=== PATIENT | female | born 1940 | race Caucasian/White ===

== ENCOUNTER → 2022-09-05 | Outpatient (CLI) | payer MEDICARE ==
[~2022-09-05] MED LIST: LIDOCAINE 1% INJ 10 ML VIAL INJ ONE
--- NOTE | 2022-09-05 13:30 | Diagnostic Imaging Report ---
INDICATION: Left lobe thyroid mass. PROCEDURE: The patient presents for ultrasound-guided fine-needle aspiration and Rotex biopsy. The patient was brought to the procedure room and placed on the table in the supine position. Ultrasound imaging of the neck was performed to evaluate appropriate entry site. The left neck was then prepped and draped in the usual sterile fashion. Small amount of 1% lidocaine was utilized for local anesthesia. A total of 4 passes were made into the dominant solid mass left lobe of the thyroid utilizing 25-gauge needles and fine-needle aspiration technique. A single pass was made with a Rotex needle and a Rotex biopsy was formed. Hemostasis was obtained. Patient tolerated the procedure well left the department in stable condition. IMPRESSION: Successful ultrasound-guided fine needle aspiration left lobe thyroid mass with Rotex biopsy. Pathology results are currently pending. Dictated by: Dictated on workstation # [id number]
== END ==
LOC: RAD 09-03 11:30
PROVIDERS: ATTEND Nurse Practitioner Family
DX: E04.1 Nontoxic single thyroid nodule (principal)
CPT/HCPCS: 10005

== ENCOUNTER → 2023-04-28 | Outpatient (CLI) | payer MEDICARE ==
--- NOTE | 2023-04-28 17:48 | Diagnostic Imaging Report ---
INDICATION: Right knee pain. Time of exam: 11:25 AM Multiple views of the right knee were obtained. There is fairly significant medial compartmental degenerative change with significant joint space narrowing. Lateral compartment is maintained. There is also moderate patellofemoral degenerative change. No fracture or dislocation is seen. There is no joint effusion. There is generalized demineralization. IMPRESSION: Degenerative changes. No other significant abnormality is detected. Dictated by: Dictated on workstation # [id number]
== END ==
LOC: ORTHO 11:17
PROVIDERS: ATTEND Orthopaedic Surgery
DX: M17.11 Unilateral primary osteoarthritis, right knee (principal)
CPT/HCPCS: 73564; G0463; 99203

== ENCOUNTER → 2023-05-14 | Outpatient (CLI) | payer MEDICARE ==
[~2023-05-14] VITALS: Ht 167.6 cm; Wt 87.2 kg
[~2023-05-14] MED LIST changes: +ACET-2650 PO; +ASPI-999 PO; +ATOR40TA70 PO; +CALC-408 PO; +CART1TAB5 PO; +CLOP-31 PO; +CYAN250014 PO; +DICL20GE TP; +LEVO50CA4 PO; -LIDOCAINE 1% INJ 10 ML VIAL INJ ONE; +LISI20TA26 PO; +NAPR-915 PO
[2023-05-14 10:33] LABS: BILIRUBIN,URINE NEGATIVE (NEGATIVE); CLARITY,URINE CLEAR; COLOR,URINE YELLOW; GLUCOSE, URINE (UA) NEGATIVE (NEGATIVE); KETONES,URINE NEGATIVE (NEGATIVE); LEUKOCYTE ESTERASE ,URINE NEGATIVE (NEGATIVE); NITRITE,URINE NEGATIVE (NEGATIVE); PROTEIN,URINE NEGATIVE (NEGATIVE)
[2023-05-14 10:50] LABS: BACTERIA,URINE TRACE /HPF; RBC,URINE RARE /HPF; SQUAMOUS EPITHELIAL CELL,UR RARE /HPF
[2023-05-14 10:52] VITALS: BP 148/74
[2023-05-14 11:18] LABS: BASOPHILS # (AUTO) 0.1 10^3/uL (0.0-0.1); BASOPHILS % (AUTO) 1 % (0-10); EOSINOPHILS # (AUTO) 0.2 10^3/uL (0.0-0.3); EOSINOPHILS % (AUTO) 3 % (0-10); HEMATOCRIT 35 % (35-52); HEMOGLOBIN 10.9 g/dL (11.5-16.0); LYMPHOCYTES # (AUTO) 1.4 10^3/uL (1.0-4.0); LYMPHOCYTES % (AUTO) 18 % (12-44); MEAN CORPUSCULAR HEMOGLOBIN 30 pg (25-34); MEAN CORPUSCULAR HGB CONC 32 g/dL (32-36); MEAN CORPUSCULAR VOLUME 93 fL (80-99); MEAN PLATELET VOLUME 9.5 fL (9.0-12.2); MONOCYTES # (AUTO) 0.8 10^3/uL (0.0-1.0); MONOCYTES % (AUTO) 11 % (0-12); NEUTROPHILS # (AUTO) 5.1 10^3/uL (1.8-7.8); NEUTROPHILS % (AUTO) 68 % (42-75); PLATELET COUNT 381 10^3/uL (130-400); WHITE BLOOD COUNT 7.5 10^3/uL (4.3-11.0)
[2023-05-14 11:27] LABS: POTASSIUM 4.8 MMOL/L (3.6-5.0)
[2023-05-14 11:29] LABS: CALCIUM 9.9 MG/DL (8.5-10.1)
[2023-05-14 11:33] LABS: CREATININE SERUM 1.64 MG/DL (0.60-1.30)
--- NOTE | 2023-05-14 15:22 | Diagnostic Imaging Report ---
CHEST PA/LAT (2 VIEW) INDICATION: PRE OP SURGERY. COMPARISON: None. FINDINGS: Lungs: Normal lung volume. No focal consolidation. Stable pulmonary vasculature. Pleura: No pleural effusion or pneumothorax. Heart and Mediastinum: Cardiomediastinal silhouette and great vessels of the thorax are stable. Osseous Structures and Soft Tissues: No acute osseous abnormality. Normal soft tissues. IMPRESSION: No acute cardiopulmonary process. Dictated by: Dictated on workstation # [id number]
== END ==
LOC: PREOP 08:06
PROVIDERS: ATTEND Orthopaedic Surgery
DX: Z01.818 Encounter for other preprocedural examination (principal); M17.11 Unilateral primary osteoarthritis, right knee
CPT/HCPCS: 36415; 71046; 80048; 81000; 85025; 87081; 93005

== ENCOUNTER 2023-05-25 07:35 | Day surgery (SDC) | payer MEDICARE ==
[2023-05-25] VITALS (14 sets, daily range): BP systolic 96–175; BP diastolic 63–85
[~2023-05-25] VITALS: Ht 167.6 cm; Wt 87.2 kg
[2023-05-25] MEDS ORDERED: ceFAZolin INJECTION 2,000 MG in NS (IVPB) 50 ML IV ONE (08:00)
[2023-05-25] MEDS ORDERED: LIDOCAINE PF 2% 5 ML (XYLOCAINE) VIAL ONE (08:19)
[2023-05-25] MEDS ORDERED: PROPOFOL INJECTION 50 ML IV ONE ×2 (08:19→11:50)
[2023-05-25] MEDS ORDERED: fentaNYL INJ 100 MCG/2 ML AMP ONE (08:19)
[2023-05-25] MEDS ORDERED: ROPIVACAINE 5MG/ML 30ML VIAL ONE (08:19)
[2023-05-25] MEDS: LACTATED RINGERS 1,000 ML IV PRN ×2 (08:23→10:40)
[2023-05-25] MEDS ORDERED: BUPIVACAINE 0.5% 30 ML (SENSORCAINE) VIAL ONE (08:24)
[2023-05-25] MEDS ORDERED: MIDAZOLAM 2 MG/2 ML (VERSED) VIAL ONE (10:10)
--- NOTE | 2023-05-25 10:21 | Progress Note-Pre Operative ---
Pre-Operative Progress Note Date of Available H&P: Apr 28, 2023 Date H&P Reviewed: May 25, 2023 Time H&P Reviewed: 10:05 History & Physical: H&P Reviewed, Patient Examed, No changes noted Pre-Operative Diagnosis: Right Knee Primary Osteoarthritis ROSALINDA GUTIERREZ MD May 25, 2023 10:21
[2023-05-25] MEDS ORDERED: TRANEXAMIC ACID 100 MG/ML 10 ML INJECTION ONE (10:30)
[2023-05-25] MEDS ORDERED: PHENYLEPHRINE 100 MCG/ML 10 ML (ANESTHESIA) SYR ONE (10:43)
[2023-05-25] MEDS ORDERED: GLYCOPYRROLATE 0.2 MG/ML (ROBINUL) 2 ML VIAL ONE (10:59)
[2023-05-25] MEDS ORDERED: proPOfol 200 MG/20 ML (DIPRIVAN) VIAL IV ONE (11:05)
--- NOTE | 2023-05-25 12:25 | Operative Report - Ortho ---
Operative Report Surgeon (s)/University Internship (s) Surgeon ROSALINDA GUTIERREZ MD University Internship n/a Pre-Operative Diagnosis Right Knee Primary Osteoarthritis Post-Operative Diagnosis same Operative Report Date of Procedure: May 25, 2023 Name of Procedure Performed: Right Total Knee Arthroplasty Description & Findings After obtaining informed consent and marking the patient in the preoperative holding area, the patient did receive IV antibiotics. Patient was taken to the operating room and anesthesia was induced. Surgical timeout was taken. The right lower extremity was prepped and draped in the usual sterile fashion. Incision was made and carried down to fascia. Arthrotomy was performed on the medial side of the patella. Patella was retracted laterally and knee was flexed. Found to have circumferential osteophtye around the distal femur as well as exposed bone in the medial compartment. Hole was made in the distal femur for the intramedullary distal femoral cutting guide. Resection was made then the femur was sized as a 3. 4-in-1 block for a size [address]. Anterior cut was made and there was no notch. Posterior cut was made followed by the chamfers. Box cut was performed. Lug holes were drilled. Attention was turned to the tibial side, extramedullary tibial guide was put into place and aligned with the tibial crest. It was set to take 2 mm off of the affected medial side. Drop makenna was used to confirm alignment. Resection was made and was parallel to the joint line. Tibial bone block was removed. Lamina restaurant assistant manager was put into place and the menisci and posterior osteophytes were removed. The knee was trialed with a size 3 femur and a size 3 tibia with an 11 mm poly trial. It was found to come out to full extension and flexed beyond 120 degrees. It was stable to varus and valgus stress throughout its range of motion. This was accepted. Knee was brought out into extension and the patella was measured at less than 20 mm of thickness; osteophytes were removed from around the perimeter of the patella. Trial implants were removed. Tibial tray was pinned and punched. The cut bone surfaces were lavaged with pulsatile normal saline. Implants were opened and assembled on the back table. Cement was mixed. Cement was applied to the cut bone surface as well as the implant surface. A size 3 tibial component was impacted into placed and excess cement was removed using a [place]. A size 3 femoral component was impacted into place and excess cement was removed using a [place]. Tibial tray was lavaged with saline. An 11 mm thick polyethylene component was locked into placed and the locking mechanism was checked. Knee was brought into extension; irrisept soak was performed. The knee was irrigated with normal saline. Once the cement had set, the knee was once again trialed; found to come to full extension, flexed beyond 120 degrees, and was stable to varus and valgus stress. Tourniquet was dropped and electrocautery was used for further hemostasis. Fascial layer was closed with #2 Stratafix. The subcutaneous layer was closed with 2-0 Vicryl. The skin was closed with ray. Wound was dressed with xeroform, 4x4s, ABD, webril, and BIANCA wrap. Patient tolerated the procedure well and was stable to the recovery room. Anesthesia Type Spinal Estimated Blood Loss 150 mL Specimen(s) collected/removed None ROSALINDA GUTIERREZ MD May 25, 2023 12:25
[2023-05-25] MEDS ORDERED: MILK OF MAGNESIA 400 MG/5 ML 30 ML UDC PO PRN (12:30)
[2023-05-25] MEDS ORDERED: BISACODYL 5 MG (DULCOLAX) TABLET PO PRN (12:30)
[2023-05-25] MEDS ORDERED: ONDANSETRON 4 MG/2 ML (SDV) Z0FRAN IV PRN (12:30)
[2023-05-25] MEDS ORDERED: ACETAMINOPHEN 500 MG TAB (TYLENOL) PO PRN (12:30)
--- NOTE | 2023-05-25 12:57 | Diagnostic Imaging Report ---
Indication: Osteoarthritis. 2 views were obtained FINDINGS: There are postsurgical changes right knee arthroplasty. Hardware is in satisfactory position. No loosening. Soft tissues are unremarkable. IMPRESSION: Stable post interval change of a right knee arthroplasty. Dictated by: Dictated on workstation # [id number]
[2023-05-25] MEDS: NS IV 1000 ML 1,000 ML IV SCH ×2 (14:25→22:48)
--- NOTE | 2023-05-25 14:46 | Physical Therapy Evaluation ---
PT Evaluation-General Medical Diagnosis Admission Date May 25, 2023 Medical Diagnosis: right knee OA Onset Date: May 25, 2023 Therapy Diagnosis Therapy Diagnosis: debility/weakness Precautions Precautions/Isolations: Fall Prevention, Standard Precautions Weight Bear Status Right Lower Extremity: Right Weight Bearing/Tolerated Left Lower Extremity: Left Full Weight Bearing Referral Physician: Casey Reason for Referral: Evaluation/Treatment Medical History Current History s/p elective right TKR Reviewed History: Yes Social History Home: Single Level Current Living Status: Spouse Prior Prior Level of Function SCALE: Activities may be completed with or without assistive devices. 7-Slphucivto-aicldhm completes the activity by him/herself with no assistance from a helper. 5-Set-up or Clean-up Assistance-helper sets up or cleans up; patient completes activity. [place] assists only prior to or following the activity. 4-Supervision or Touching Assistance-helper provides verbal cues and/or touching/steadying and/or contact guard assistance as patient completes activity. Assistance may be provided throughout the activity or intermittently. 3-Partial/Moderate Assistance-helper does LESS THAN HALF the effort. [place] lif ts, holds or supports trunk or limbs, but provides less than half the effort. 2-Substantial/Maximal Assistance-helper does MORE THAN HALF the effort. [place] lifts or holds trunk or limbs and provides more than half the effort. 1-Nvzankkrz-yaadcr does ALL the effort. Patient does none of the effort to complete the activity. Or, the assistance of 2 or more helpers is required for the patient to complete the activity. If activity was not attempted, code reason: 7-Patient Refused. 9-Not Applicable-not attempted and the patient did not perform the activity before the current illness, exacerbation or injury. 10-Not Attempted due to Environmental Limitations-(lack of equipment, weather restraints, etc.). 88-Not Attempted due to Medical Conditions or Safety Concerns. Bed Mobility: 6 Transfers (B,C,W/C): 6 Gait: 6 Stairs: 6 Indoor Mobility (Ambulation): Independent Stairs: Independent PT Evaluation-Current Subjective Patient reports she is very restless and agrees to PT. Pain Numeric Pain Scale: 5-Moderate Pain Location: Right Location Body Site: Knee Pain Description: Acute Objective Patient Orientation: Normal For Age Attachments: Patel Catheter, IV ROM/Strength ROM Lower Extremities right knee flexion 80 degrees/10 degrees extension; left LE WFL Strength Lower Extremities right LE 3/5; left LE 4/5 Integumentary/Posture Bladder Incontinence: Patel Cath Posture WFL Neuromuscular (Tone, Coordination, Reflexes) grossly intact Sensory Vision: Functional Hearing: Functional Transfers Lying to Sitting/Side of Bed(Q: 4 Sit to Stand (QC): 4 Chair/Rkt-kq-Ygbcb Xfer(QC): 4 Gait Mode of Locomotion: Walk Anticipated Mode of Locomotion: Walk Walk 10 feet (QC): 4 Walk 50 ft with 2 Turns(QC): 88 Distance: 10' Gait Assistive Device: FWW Comments/Gait Description slow, antalgic Balance Sitting Static: Normal Sitting Dynamic: Normal Standing Static: Fair Standing Dynamic: Fair Assessment/Needs Patient will benefit from skilled PT to address functional strength and mobility to improve current LOF to safely return to home with family at maximum LOF. Rehab Potential: Fair PT Electoral Officer Goals Electoral Officer Goals PT Electoral Officer Goals Time Frame: May 25, 2023 Roll Left & Right (QC): 6 Sit to Lying (QC): 6 Lying-Sitting on Side/Bed(QC): 6 Sit to Stand (QC): 6 Chair/Toj-go-Kcetm Xfer(QC): 6 Toilet Transfer (QC): 6 Walk 10 feet (QC): 6 Walk 50ft with 2 Turns (QC): 6 Walk 150 ft (QC): 6 PT Plan Treatment/Plan Treatment Plan: Continue Plan of Care Treatment Plan: Bed Mobility, Education, Functional Activity Krista, Functional Strength, Gait, Safety, Therapeutic Exercise, Transfers Treatment Duration: May 30, 2023 Frequency: 11 times per week Estimated Hrs Per Day: .5 hour per day Time Time In: 1415 Time Out: 1432 DATE: May 25, 2023 Total Billed Treatment Time: 17 Total Billed Treatment 1 visit EVMod 17 min TORRES CHAIDEZ PT May 25, 2023 14:46
[2023-05-25] MEDS: morphine INJ 4 MG/ML 1 ML (VIAL/SYRINGE) IVP PRN ×2 (15:28→22:55)
--- NOTE | 2023-05-25 15:32 | Consultation ---
HPI History of Present Illness: HPI/Chief Complaint Chief complaint: Right total knee replacement in need of medical management HPI: This is an 83-year-old female clinic patient of Dr. Dobbs in [place], [place] who has a past medical history of hypertension and hypothyroidism who presented after an uncomplicated right total knee replacement by Dr. Peña. Home meds will be restarted. Blood pressure will be monitored closely. Patient has had some nausea but it has passed. Pain is still an issue. Source: patient, family, RN/MD Exam Limitations: no limitations Date Seen 05/25/23 Attending Physician Brett Dobbs DO PCP Admitting Physician: Attending Physician: Robert Peña MD Referring Physician Date of Admission Home Medications & Allergies Home Medications Reviewed patient Home Medication Reconciliation performed by pharmacy medication reconciliations optics manufacturing technician and/or nursing. Patients Allergies have been reviewed. Allergies Allergies Coded Allergies No Known Drug Allergies (Unverified05/14/23) Past Xqxylet-Ipibfu-Ixyywc Hx Past Med/Social Hx: Reviewed Nursing Past Med/Soc Hx, Reviewed and Corrections made Patient Social History Marrital Status: Employed/Student: retired Alcohol Use: Denies Use Smoking Status: Never a Smoker 2nd Hand Smoke Exposure: Yes ( CHILD) Recent Hopitalizations: No Seasonal Allergies Seasonal Allergies: No Past Medical History Surgeries: Orthopedic Currently Using CPAP: No Currently Using BIPAP: No Cardiac: High Cholesterol, Hypertension Neurological: TIA Genitourinary: Bladder Infection Musculoskeletal: Degenerate Disk Disease, Arthritis Endocrine: Hypothyroidsim HEENT: Cataract History of Blood Disorders: No Review of Systems Constitutional: see HPI, dizziness, malaise, weakness EENTM: no symptoms reported Respiratory: no symptoms reported Cardiovascular: no symptoms reported Gastrointestinal: nausea Genitourinary: no symptoms reported Musculoskeletal: back pain, joint pain Skin: no symptoms reported Psychiatric/Neurological: No Symptoms Reported Physical Exam Physical Exam Vital Signs Vital Signs - First Documented 05/25/23 08:10 Temp 36.4 Pulse 72 Resp 18 B/P (MAP) 122/68 (86) Pulse Ox 96 O2 Delivery Room Air Capillary Refill : Less Than 3 Seconds Height, Weight, BMI Height: '" Weight: lbs. oz. kg; 31.04 BMI Method: General Appearance: No Apparent Distress, WD/WN, Chronically ill Eyes: Bilateral Eye Normal Inspection, Bilateral Eye PERRL HEENT: PERRL/EOMI, Normal ENT Inspection, Pharynx Normal Neck: Full Range of Motion, Normal Inspection, Non Tender, Supple, Carotid Bruit Respiratory: Chest Non Tender, Lungs Clear, Normal Breath Sounds, No Accessory Muscle Use, No Respiratory Distress Cardiovascular: Regular Rate, Rhythm, No Edema, No Gallop, No JVD, No Murmur, Normal Peripheral Pulses Gastrointestinal: Normal Bowel Sounds, No Organomegaly, No Pulsatile Mass, Non Tender, Soft Back: Normal Inspection, No CVA Tenderness, No Vertebral Tenderness Extremity: Normal Capillary Refill, Normal Inspection, Normal Range of Motion (except right leg), Non Tender, No Calf Tenderness, No Pedal Edema Neurologic/Psychiatric: Alert, Oriented x3, No Motor/Sensory Deficits, Normal Mood/Affect Skin: Normal Color, Warm/Dry Lymphatic: No Adenopathy Results Results/Procedures Labs Patient resulted labs reviewed. Assessment/Plan Assessment and Plan Assess & Plan/Chief Complaint Assessment: Uncomplicated right total knee replacement due to osteoarthritis failed co nservative management Hypertension TIA history Hypothyroidism Hyperlipidemia Plan: Home meds Supportive care PT and OT Fall risk Pain control ARASH MAYA DO May 25, 2023 15:32
[2023-05-25] MEDS: ASPIRIN E.C. 81 MG (ECOTRIN) TAB PO SCH (16:55)
[2023-05-25] MEDS ORDERED: LORazepam 0.5 MG (ATIVAN) TABLET PO PRN (17:15)
[2023-05-25] MEDS: CYCLOBENZAPRINE 10 MG (FLEXERIL) TAB PO PRN (20:00)
[2023-05-25] MEDS: CELECOXIB 100 MG (CeleBREX) CAP PO SCH (20:00)
[2023-05-25] MEDS: DOCUSATE SODIUM 100 MG (COLACE) CAP PO SCH (20:00)
[2023-05-25] MEDS ORDERED: amLODIPine 5 MG (NORVASC) TAB PO ONE (21:00)
[2023-05-26 03:06] VITALS: BP 146/75
[2023-05-26] MEDS: morphine INJ 4 MG/ML 1 ML (VIAL/SYRINGE) IVP PRN (03:39)
[2023-05-26 05:26] LABS: BASOPHILS # (AUTO) 0.1 10^3/uL (0.0-0.1); BASOPHILS % (AUTO) 1 % (0-10); EOSINOPHILS % (AUTO) 0 % (0-10); HEMATOCRIT 31 % (35-52); HEMOGLOBIN 9.8 g/dL (11.5-16.0); LYMPHOCYTES # (AUTO) 1.2 10^3/uL (1.0-4.0); LYMPHOCYTES % (AUTO) 11 % (12-44); MEAN CORPUSCULAR HEMOGLOBIN 29 pg (25-34); MEAN CORPUSCULAR HGB CONC 31 g/dL (32-36); MEAN CORPUSCULAR VOLUME 94 fL (80-99); MEAN PLATELET VOLUME 9.7 fL (9.0-12.2); MONOCYTES # (AUTO) 1.4 10^3/uL (0.0-1.0); MONOCYTES % (AUTO) 13 % (0-12); NEUTROPHILS # (AUTO) 8.2 10^3/uL (1.8-7.8); NEUTROPHILS % (AUTO) 75 % (42-75); PLATELET COUNT 297 10^3/uL (130-400)
--- NOTE | 2023-05-26 05:37 | Progress Note ---
Subjective Date Seen by a Provider: May 26, 2023 Time Seen by a Provider: 10:00 Subjective/Events-last exam No major nausea Pain is an issue Reviewed meds and labs Review of Systems General: Fatigue, Malaise Musculoskeletal: leg pain Objective Exam Last Set of Vital Signs Vital Signs Date Time Temp Pulse Resp B/P (MAP) Pulse Ox O2 Delivery O2 Flow Rate FiO2 05/26/23 03:06 37.2 82 18 146/75 (98) 91 Room Air 05/25/23 14:10 0.00 Capillary Refill : Less Than 3 Seconds I&O Intake and Output 05/26/23 00:00 Intake Total 1730 ml Output Total 900 ml Balance 830 ml Intake Oral 680 ml IV Total 1050 ml Output Urine Total 900 ml Daily Weight Change No General: Alert, Oriented X3, Cooperative, No Acute Distress Lungs: Clear to Auscultation, Normal Air Movement Heart: Regular Rate, Normal S1, Normal S2, No Murmurs Psych/Mental Status: Mental Status NL, Mood NL Results Lab Laboratory Tests 05/26/23 05:20: White Blood Count 11.0, Red Blood Count 3.36L, Hemoglobin 9.8L, Hematocrit 31L, Mean Corpuscular Volume 94, Mean Corpuscular Hemoglobin 29, Mean Corpuscular Hemoglobin Concent 31L, Red Cell Distribution Width 13.1, Platelet Count 297, Mean Platelet Volume 9.7, Immature Granulocyte % (Auto) 0, Neutrophils (%) (Auto) 75, Lymphocytes (%) (Auto) 11L, Monocytes (%) (Auto) 13H, Eosinophils (%) (Auto) 0, Basophils (%) (Auto) 1, Neutrophils # (Auto) 8.2H, Lymphocytes # (A uto) 1.2, Monocytes # (Auto) 1.4H, Eosinophils # (Auto) 0.0, Basophils # (Auto) 0.1, Immature Granulocyte # (Auto) 0.0 Assessment/Plan Assessment/Plan Assess & Plan/Chief Complaint Assessment: Uncomplicated right total knee replacement due to osteoarthritis failed conservative management Hypertension TIA history Hypothyroidism Hyperlipidemia Plan: Home meds Supportive care PT and OT Fall risk Pain control ARASH MAYA DO May 26, 2023 05:37
[2023-05-26 05:46] LABS: ALBUMIN 3.3 GM/DL (3.2-4.5); BILIRUBIN,TOTAL 0.5 MG/DL (0.1-1.0); CALCIUM 9.1 MG/DL (8.5-10.1); CREATININE SERUM 1.27 MG/DL (0.60-1.30); POTASSIUM 4.7 MMOL/L (3.6-5.0); TOTAL PROTEIN 5.7 GM/DL (6.4-8.2)
[2023-05-26] MEDS: MULTIVIT W/MINERALS TAB (THERAGRAN M) PO SCH (06:02)
[2023-05-26] MEDS: CYCLOBENZAPRINE 10 MG (FLEXERIL) TAB PO PRN (06:02)
[2023-05-26 07:16] VITALS: BP 134/68
--- NOTE | 2023-05-26 07:43 | Anesthesia-Regional Post-Op ---
Regional Patient Condition Mental Status: Alert, Oriented x3 Circulation: Same as Pre-Op Headache: Absent Sensation: Full Recovery Motor Block: Absent Post Op Complications Complications None Follow Up Care/Instructions Patient Instructions None needed. Anesthesia/Patient Condition Patient is doing well, no complaints, stable vital signs, no apparent adverse anesthesia problems. No complications reported per nursing. FRANCOIS RINCON CRNA May 26, 2023 07:43
[2023-05-26] MEDS: CLOPIDOGREL 75 MG (PLAVIX) TABLET PO SCH (08:07)
[2023-05-26] MEDS: DOCUSATE SODIUM 100 MG (COLACE) CAP PO SCH ×2 (08:07→20:41)
[2023-05-26] MEDS: ASPIRIN E.C. 81 MG (ECOTRIN) TAB PO SCH ×2 (08:07→17:31)
[2023-05-26] MEDS: CELECOXIB 100 MG (CeleBREX) CAP PO SCH ×2 (08:07→20:41)
[2023-05-26] MEDS: LEVOTHYROXINE 50 MCG (LEVOTHROID) TAB PO SCH (08:07)
[2023-05-26] MEDS: amLODIPine 5 MG (NORVASC) TAB PO SCH (08:08)
[2023-05-26] MEDS: lisINopril 20 MG (PRINIVIL) TABLET PO SCH (08:08)
[2023-05-26] MEDS: NS IV 1000 ML 1,000 ML IV SCH ×2 (08:08→17:27)
--- NOTE | 2023-05-26 08:20 | Progress Note - Ortho ---
Progress Note Subjective Date of Exam 05/26/23 Chief Complaint POD #1 R TKA HPI/Events since last exam difficulty with pain, doing very well with starting therapy Review of Systems - Allergies: Coded Allergies: No Known Drug Allergies (Unverified , 05/14/23) Home Meds Reported Medications Cyanocobalamin (Vitamin B-12) (Vitamin B12) Unknown Strength Tab.chew, PO, TAB 05/14/23 Acetaminophen (Tylenol Arthritis) 650 Mg Tablet.er, 1300 MG PO Q8H, TAB 05/14/23 Naproxen (Naproxen) 500 Mg Tablet, 500 MG PO BID for Renal Colic for 3 Days, TAB 05/14/23 Lisinopril (Lisinopril) 20 Mg Tablet, 20 MG PO DAILY, TAB 05/14/23 Levothyroxine Sodium (Levothyroxine) 50 Mcg Capsule, 50 MCG PO DAILY, CAP 05/14/23 Cartilage/Collagen/Bor/Hyalur (Joint Health Tablet) 40 Mg-10 Mg-5 Mg-3.3 Mg Tablet, 1 EACH PO DAILY, TAB 05/14/23 Diclofenac Sodium (Voltaren Arthritis Pain) 1 % Gel..gram., 20 GM TP UD, EA 05/14/23 Clopidogrel Bisulfate (Plavix) 75 Mg Tablet, 75 MG PO DAILY, TAB 05/14/23 Calcium Carb/Magnesium Oxid/D3 (Calcium Magnesium + D Tablet) 400 Mg-167 Mg-133 Unit Tablet, 1 EACH PO DAILY, TAB 05/14/23 Atorvastatin Calcium (Atorvastatin Calcium) 40 Mg Tablet, 40 MG PO DAILY, TAB 05/14/23 Aspirin (Aspirin) 81 Mg Tab.chew, 81 MG PO DAILY, TAB 05/14/23 Objective Exam R Knee: Dressing C/D/I, +DF of ankle, no s/s of DVT Vital Signs Vital Signs Date Time Temp Pulse Resp B/P (MAP) Pulse Ox O2 Delivery O2 Flow Rate FiO2 05/26/23 07:16 36.9 88 18 134/68 (90) 93 Room Air 05/26/23 03:06 37.2 82 18 146/75 (98) 91 Room Air 05/25/23 23:15 36.6 72 18 175/77 (109) 92 Room Air 05/25/23 22:49 36.6 72 18 175/77 (109) 92 Room Air 05/25/23 20:55 164/70 (101) 05/25/23 20:15 92 Room Air 05/25/23 20:04 Room Air 05/25/23 19:56 36.6 61 18 171/72 (105) 92 Room Air 05/25/23 16:28 37.2 65 17 139/76 (97) 97 Room Air 05/25/23 14:10 36.2 60 18 146/64 (91) 97 Room Air 0.00 05/25/23 13:20 36.1 20 133/85 (101) 95 Room Air 05/25/23 13:20 Room Air 05/25/23 13:10 20 130/80 (97) 95 Room Air 05/25/23 13:10 Room Air 05/25/23 13:00 OxyMask 3.00 05/25/23 13:00 20 135/69 (91) 96 OxyMask 2.00 05/25/23 12:50 20 133/69 (90) 98 OxyMask 3.00 05/25/23 12:45 OxyMask 3.00 05/25/23 12:40 20 120/64 (82) 99 OxyMask 2.00 05/25/23 12:30 OxyMask 3.00 05/25/23 12:30 20 115/64 (81) 98 OxyMask 3.00 05/25/23 12:19 OxyMask 3.00 05/25/23 12:19 31.1 20 96/63 (74) 98 OxyMask 3.00 I & O 05/26/23 06:59 Intake Total 1830 ml Output Total 1325 ml Balance 505 ml Lab Results Laboratory Tests 05/26/23 05:20: White Blood Count 11.0, Red Blood Count 3.36L, Hemoglobin 9.8L, Hematocrit 31L, Mean Corpuscular Volume 94, Mean Corpuscular Hemoglobin 29, Mean Corpuscular Hemoglobin Concent 31L, Red Cell Distribution Width 13.1, Platelet Count 297, Mean Platelet Volume 9.7, Immature Granulocyte % (Auto) 0, Neutrophils (%) (Auto) 75, Lymphocytes (%) (Auto) 11L, Monocytes (%) (Auto) 13H, Eosinophils (%) (Auto) 0, Basophils (%) (Auto) 1, Neutrophils # (Auto) 8.2H, Lymphocytes # (Auto) 1.2, Monocytes # (Auto) 1.4H, Eosinophils # (Auto) 0.0, Basophils # (Auto) 0.1, Immature Granulocyte # (Auto) 0.0, Sodium Level 137, Potassium Level 4.7, Chloride Level 110H, Carbon Dioxide Level 22, Anion Gap 5, Blood Urea Nitrogen 18, Creatinine 1.27, Estimat Glomerular Filtration Rate 42, BUN/Creatinine Ratio 14, Glucose Level 120H, Calcium Level 9.1, Corrected Calcium 9.7, Total Bilirubin 0.5, Aspartate Amino Transf (AST/SGOT) 27, Alanine Aminotransferase (ALT/SGPT) 20, Alkaline Phosphatase 124, Total Protein 5.7L, Albumin 3.3 Imaging 2 postop views of the right knee dated 05/25/23 were reviewed from PACS and demonstrated total knee arthroplasty in good position without complication Assessment and Plan Assessment R Knee Primary OA s/p TKA Problem List R Knee Primary OA s/p TKA Plan PT/OT DVT prophylaxis Pain control Plan for home with home health possibly tomorrow Final Diagonsis R Knee Primary OA s/p TKA Level of the visit: Level 3 ROSALINDA GUTIERREZ MD May 26, 2023 08:20
--- NOTE | 2023-05-26 09:07 | Physical Therapy Daily Note ---
PT Daily Note-Current Subjective Patient agrees to PT. Rates right knee pain 10/10 with flat expression. Pain Numeric Pain Scale: 10-Worst Possible Pain Location: Right Location Body Site: Knee Pain Description: Acute Section J - Health Conditions 1. Rarely or not at all 2. Occasionally 3. Frequently 4. Almost constantly 8. Unable to answer Pain Effect on Sleep: 1 Pain Interference with Therapy: 1 Pain Interference w/Day-to-Day: 1 Mental Status Patient Orientation: Normal For Age Transfers SCALE: Activities may be completed with or without assistive devices. 5-Uopbmgxxle-mfimnzv completes the activity by him/herself with no assistance from a helper. 5-Set-up or Clean-up Assistance-helper sets up or cleans up; patient completes activity. [place] assists only prior to or following the activity. 4-Supervision or Touching Assistance-helper provides verbal cues and/or touching/steadying and/or contact guard assistance as patient completes activity. Assistance may be provided throughout the activity or intermittently. 3-Partial/Moderate Assistance-helper does LESS THAN HALF the effort. [place] l ifts, holds or supports trunk or limbs, but provides less than half the effort. 2-Substantial/Maximal Assistance-helper does MORE THAN HALF the effort. [place] lifts or holds trunk or limbs and provides more than half the effort. 6-Qmrdrucae-ygtzrq does ALL the effort. Patient does none of the effort to complete the activity. Or, the assistance of 2 or more helpers is required for t he patient to complete the activity. If activity was not attempted, code reason: 7-Patient Refused. 9-Not Applicable-not attempted and the patient did not perform the activity before the current illness, exacerbation or injury. 10-Not Attempted due to Environmental Limitations-(lack of equipment, weather restraints, etc.). 88-Not Attempted due to Medical Conditions or Safety Concerns. Lying to Sitting/Side of Bed(Q: 4 Sit to Stand (QC): 4 Chair/Cym-jh-Oowdh Xfer(QC): 4 Weight Bearing Right Lower Extremity: Right Weight Bearing/Tolerated Left Lower Extremity: Left Full Weight Bearing Gait Training Distance: 200' Walk 10 feet (QC): 4 Walk 50 ft with 2 Turns(QC): 4 Walk 150 ft (QC): 4 Gait Assistive Device: FWW CGA for safety;VC's for body placement in FWW and FWW use/patient is impulsive with all mobility Exercises Supine Ex: Ankle pumps, Quad Set, Heel Slides, Straight leg raise Supine Reps: 15 Seated Therapy Exercises: Long arc quads Seated Reps: 15 Assessment Patient progressing with treatment plan and is up in recliner with needs met. Patient encouraged to perform exercises PRN. Increase activity as tolerated by patient. PT Correction Goals Dental Receptionist Goals PT Dental Receptionist Goals Time Frame: May 25, 2023 Roll Left & Right (QC): 6 Sit to Lying (QC): 6 Lying-Sitting on Side/Bed(QC): 6 Sit to Stand (QC): 6 Chair/Mzw-nd-Yyyor Xfer(QC): 6 Toilet Transfer (QC): 6 Walk 10 feet (QC): 6 Walk 50ft with 2 Turns (QC): 6 Walk 150 ft (QC): 6 PT Plan Treatment/Plan Treatment Plan: Continue Plan of Care Treatment Plan: Bed Mobility, Education, Functional Activity Krista, Functional Strength, Gait, Safety, Therapeutic Exercise, Transfers Treatment Duration: May 30, 2023 Frequency: 11 times per week Estimated Hrs Per Day: .5 hour per day Time Time In: 739 Time Out: 802 DATE: May 26, 2023 Total Billed Treatment Time: 23 Total Billed Treatment 1 visit EX 13 min GT 10 min TORRES CHAIDEZ PT May 26, 2023 09:07
--- NOTE | 2023-05-26 11:04 | Occupational Therapy Eval ---
OT Evaluation-General/PLF Medical Diagnosis Admission Date Medical Diagnosis: right knee OA Onset Date: May 25, 2023 Therapy Diagnosis Therapy Diagnosis: weakness, pain w/ LE ROM Precautions Precautions/Isolations: Standard Precautions Weight Bear Status Weight Bearing Restriction: Weight Bearing/Tolerated Location Restriction: R LE Referral Physician: Casey Referral Reason: Activity Tolerance, Self Care, Evaluation/Treatment Social History Home: Single Level Current Living Status: Spouse ADL-Prior Level of Function SCALE: Activities may be completed with or without assistive devices. 6-Jtpjivnxom-qaaihqi completes the activity by him/herself with no assistance from a helper. 5-Set-up or Clean-up Assistance-helper sets up or cleans up; patient completes activity. [place] assists only prior to or following the activity. 4-Supervision or Touching Assistance-helper provides verbal cues and/or touching/steadying and/or contact guard assistance as patient completes activity. Assistance may be provided throughout the activity or intermittently. 3-Partial/Moderate Assistance-helper does LESS THAN HALF the effort. [place] lifts, holds or supports trunk or limbs, but provides less than half the effort. 2-Substantial/Maximal Assistance-helper does MORE THAN HALF the effort. [place] lifts or holds trunk or limbs and provides more than half the effort. 3-Ocjgfmqfe-uwvbcs does ALL the effort. Patient does none of the effort to complete the activity. Or, the assistance of 2 or more helpers is required for the patient to complete the activity. If activity was not attempted, code reason: 7-Patient Refused. 9-Not Applicable-not attempted and the patient did not perform the activity before the current illness, exacerbation or injury. 10-Not Attempted due to Environmental Limitations-(lack of equipment, weather restraints, etc.). 88-Not Attempted due to Medical Conditions or Safety Concerns. Self Care: Independent Functional Cognition: Independent OT Current Status Subjective Resting n bed, requires motivation to perform OOB activity, pardo removed today Mental Status/Objective Patient Orientation: Person, Place, Time, Situation Current Glasses/Contacts: Yes Upper Extremity ROM BUE ROM WFLS Upper Extremity Strength -4/5 BUE grossly ADL-Treatment ADL-Current Ambulation to bathroom w/ FWW, required encouragement to toilet and train bladder following DC of Pardo. Eating (QC): 6 Oral Hygiene (QC): 5 Shower/Bathe Self (QC): 7 Upper Body Dressing (QC): 4 Lower Body Dressing (QC): 4 On/Off Footwear (QC): 3 Toileting Hygiene (QC): 4 Education OT Patient Education: Correct positioning, Modified ADL techniques, Progress toward Goal/Update tx plan, Purpose of tx/functional activities, Reviewed precautions, Rehab process, Safety issues, Transfer techniques Teaching Recipient: Patient Teaching Methods: Demonstration, Discussion Response to Teaching: Verbalize Understanding, Reinforcement Needed OT Pants Cutter Goals Fpc Goals Eating (QC): 6 Oral Hygiene (QC): 6 Toileting Hygiene (QC): 6 Shower/Bathe Self (QC): 6 Upper Body Dressing (QC): 6 Lower Body Dressing (QC): 6 On/Off Footwear (QC): 6 1=Demonstrate adherence to instructed precautions during ADL tasks. 2=Patient will verbalize/demonstrate understanding of assistive devices/modifications for ADL. 3=Patient will improve strength/tolerance for activity to enable patient to perform ADL's. OT Education/Plan Problem List/Assessment Assessment: Decreased Activ Tolerance, Decreased Safety Aware, Impaired Coordination, Impaired Funct Balance, Impaired Self-Care Skills Discharge Recommendations Plan/Recommendations: Continue POC Treatment Plan/Plan of Care Treatment,Training & Education: Yes Patient would benefit from OT for education, treatment and training to promote independence in ADL's, mobility, safety and/or upper extremity function for ADL's. Plan of Care: ADL Retraining, Functional Mobility, Group Exercise/Act as Ind, UE Funct Exercise/Act Treatment Duration: May 29, 2023 Frequency: 3 times per week (3-5 times per week) Estimated Hrs Per Day: .25 hour per day Agreement: Yes Rehab Potential: Fair Time Start Time: 10:09 Stop Time: 10:29 DATE: May 26, 2023 Total Time Billed (hr/min): 20 Billed Treatment Time EVM 20 JOSE DE JESUS TRAN OT May 26, 2023 11:04
[2023-05-26 11:17] VITALS: BP 142/68
[2023-05-26] MEDS: HYDROcodone/APAP 7.5 MG/325 MG (LORTAB, LORCET PLUS) TABLET PO PRN (11:42)
[2023-05-26 12:35] VITALS: BP 142/68
--- NOTE | 2023-05-26 13:47 | Physical Therapy Daily Note ---
PT Daily Note-Current Subjective Patient agrees to PT. Family present. Pain Section J - Health Conditions 1. Rarely or not at all 2. Occasionally 3. Frequently 4. Almost constantly 8. Unable to answer Pain Effect on Sleep: 1 Pain Interference with Therapy: 1 Pain Interference w/Day-to-Day: 1 Mental Status Patient Orientation: Normal For Age Transfers SCALE: Activities may be completed with or without assistive devices. 4-Xptelmqiic-eqgrtsj completes the activity by him/herself with no assistance from a helper. 5-Set-up or Clean-up Assistance-helper sets up or cleans up; patient completes activity. [place] assists only prior to or following the activity. 4-Supervision or Touching Assistance-helper provides verbal cues and/or touching/steadying and/or contact guard assistance as patient completes activity. Assistance may be provided throughout the activity or intermittently. 3-Partial/Moderate Assistance-helper does LESS THAN HALF the effort. [place] lifts, holds or supports trunk or limbs, but provides less than half the effort. 2-Substantial/Maximal Assistance-helper does MORE THAN HALF the effort. [place] lifts or holds trunk or limbs and provides more than half the effort. 6-Ffctgsubr-ilrxja does ALL the effort. Patient does none of the effort to complete the activity. Or, the assistance of 2 or more helpers is required for the patient to complete the activity. If activity was not attempted, code reason: 7-Patient Refused. 9-Not Applicable-not attempted and the patient did not perform the activity before the current illness, exacerbation or injury. 10-Not Attempted due to Environmental Limitations-(lack of equipment, weather restraints, etc.). 88-Not Attempted due to Medical Conditions or Safety Concerns. Sit to Lying (QC): 6 Sit to Stand (QC): 5 Chair/Zpi-qc-Zkigr Xfer(QC): 5 Weight Bearing Right Lower Extremity: Right Weight Bearing/Tolerated Left Lower Extremity: Left Full Weight Bearing Gait Training Distance: 200' Walk 10 feet (QC): 4 Walk 50 ft with 2 Turns(QC): 4 Walk 150 ft (QC): 4 Gait Assistive Device: FWW slow, reciprocal pattern Exercises Supine Ex: Ankle pumps, Quad Set, Heel Slides, Straight leg raise Supine Reps: 15 Seated Therapy Exercises: Long arc quads (15) Assessment Patient tolerated treatment and returned to bed with needs met. Patient AROM right knee WFL. Plan dismissal tomorrow after therapy. PT Steam Drier Operator Goals Mcfp Goals PT Mcfp Goals Time Frame: May 25, 2023 Roll Left & Right (QC): 6 Sit to Lying (QC): 6 Lying-Sitting on Side/Bed(QC): 6 Sit to Stand (QC): 6 Chair/Lns-wz-Zjgsf Xfer(QC): 6 Toilet Transfer (QC): 6 Walk 10 feet (QC): 6 Walk 50ft with 2 Turns (QC): 6 Walk 150 ft (QC): 6 PT Plan Treatment/Plan Treatment Plan: Continue Plan of Care Treatment Plan: Bed Mobility, Education, Functional Activity Krista, Functional Strength, Gait, Safety, Therapeutic Exercise, Transfers Treatment Duration: May 30, 2023 Frequency: 11 times per week Estimated Hrs Per Day: .5 hour per day Time Time In: 1320 Time Out: 1343 DATE: May 26, 2023 Total Billed Treatment Time: 23 Total Billed Treatment 1 visit EX 10 min GT 13 min TORRES CHAIDEZ PT May 26, 2023 13:47
[2023-05-26 16:34] VITALS: BP 162/68
[2023-05-26 20:12] VITALS: BP 144/60
[2023-05-27 00:15] VITALS: BP 160/70
[2023-05-27 04:23] VITALS: BP 150/70
[2023-05-27 05:56] LABS: BASOPHILS % (AUTO) 0 % (0-10); EOSINOPHILS # (AUTO) 0.1 10^3/uL (0.0-0.3); EOSINOPHILS % (AUTO) 1 % (0-10); HEMATOCRIT 31 % (35-52); HEMOGLOBIN 9.8 g/dL (11.5-16.0); LYMPHOCYTES # (AUTO) 0.7 10^3/uL (1.0-4.0); LYMPHOCYTES % (AUTO) 6 % (12-44); MEAN CORPUSCULAR HEMOGLOBIN 29 pg (25-34); MEAN CORPUSCULAR HGB CONC 31 g/dL (32-36); MEAN CORPUSCULAR VOLUME 93 fL (80-99); MONOCYTES # (AUTO) 1.4 10^3/uL (0.0-1.0); MONOCYTES % (AUTO) 12 % (0-12); NEUTROPHILS # (AUTO) 9.6 10^3/uL (1.8-7.8); NEUTROPHILS % (AUTO) 81 % (42-75); PLATELET COUNT 311 10^3/uL (130-400)
[2023-05-27 06:14] LABS: ALBUMIN 3.4 GM/DL (3.2-4.5); BILIRUBIN,TOTAL 0.6 MG/DL (0.1-1.0); CALCIUM 9.6 MG/DL (8.5-10.1); CREATININE SERUM 1.12 MG/DL (0.60-1.30); POTASSIUM 4.1 MMOL/L (3.6-5.0); TOTAL PROTEIN 6.1 GM/DL (6.4-8.2)
[2023-05-27] MEDS: MULTIVIT W/MINERALS TAB (THERAGRAN M) PO SCH (06:15)
[2023-05-27] MEDS: NS IV 1000 ML 1,000 ML IV SCH (06:16)
[2023-05-27 06:17] LABS: EOSINOPHILS % (MANUAL) 1 %; LYMPHOCYTES % (MANUAL) 11 %; MONOCYTES % (MANUAL) 8 %; NEUTROPHILS % (MANUAL) 80 %
[2023-05-27 06:18] LABS: RBC MORPH NORMAL
[2023-05-27 07:48] VITALS: BP 184/66
[2023-05-27] MEDS: lisINopril 20 MG (PRINIVIL) TABLET PO SCH (08:14)
[2023-05-27] MEDS: HYDROcodone/APAP 7.5 MG/325 MG (LORTAB, LORCET PLUS) TABLET PO PRN (08:14)
[2023-05-27] MEDS: CLOPIDOGREL 75 MG (PLAVIX) TABLET PO SCH (08:14)
[2023-05-27] MEDS: amLODIPine 5 MG (NORVASC) TAB PO SCH (08:14)
[2023-05-27] MEDS: LEVOTHYROXINE 50 MCG (LEVOTHROID) TAB PO SCH (08:14)
[2023-05-27] MEDS: ASPIRIN E.C. 81 MG (ECOTRIN) TAB PO SCH (08:14)
[2023-05-27] MEDS: DOCUSATE SODIUM 100 MG (COLACE) CAP PO SCH (08:15)
[2023-05-27] MEDS: CELECOXIB 100 MG (CeleBREX) CAP PO SCH (08:15)
[2023-05-27] MEDS ORDERED: AMLO-250 PO (08:59)
[2023-05-27] MEDS ORDERED: CYCL10TA25 PO (08:59)
[2023-05-27] MEDS ORDERED: HYDR-34 PO (08:59)
[2023-05-27] MEDS ORDERED: ASPI-1238 PO (08:59)
--- NOTE | 2023-05-27 09:01 | D/C HH Face to Face Order ---
D/C Face to Face Orders Instructions for Patient Via [facility], Patient Instructions/FollowUp: WBAT on right leg; use walker for assist. Dry dressing daily to incision site; do not get incision wet. Home health therapy for motion/strengthening/gait training. F/U with Dr. Robert Peña ~2 weeks after surgery. Physician to follow Patient: Robert Peña Discharge Diet for Home: No Restrictions Patient Data-Allergies,Ht & Wt Patient Allergies: Coded Allergies: No Known Drug Allergies (Unverified , 05/14/23) Home Health Need/Face to Face Date of Face to Face: May 27, 2023 Clinical Findings: Muscle weakness, Pain with ambulation I have seen Pt lxgh-rw-pblw: Yes Discharged To: Home Diagnosis/Conditions: Right Knee Primary Osteoarthritis s/p TKA Patient is Homebound due to: Muscle weakness, Pain w/ambulation Homebound Status Due to the above stated illness, injury or surgical procedure (medical condition or diagnosis) and associated clinical findings, the patient is homebound because of his/her inability to leave home except with aid of a vazquez pportive device and/or person AND leaving the home requires a considerable and taxing effort or is medically contraindicated. Pt req the following assistanc: Walker Home Health Nursing Orders Home Health Services Order: Physical Therapy-Evaluate & Treat Home Health Infusion Therapy Line Start Date: May 25, 2023 Therapy Orders Therapy Specific Orders: Gait training, Increase strength/endurance, Restore ROM Certify Stmt I certify that this patient is under my care and that I, a nurse practitioner or a physician; a technical administrative assistant working with me, had a face to face encounter that - meets the physician face to face encounter requirements with this patient as dated. ROBERT PEÑA MD May 27, 2023 09:01
--- NOTE | 2023-05-27 09:03 | Discharge Summary ---
Discharge Summary Hospital Course Hospital Course Date of Admission: Admission Diagnosis : Right Knee Primary Osteoarthritis Family Physician/Provider: Date of Discharge: 05/27/23 Discharge Diagnosis: [Right Knee Primary Osteoarthritis s/p TKA ] Hospital Course: [ On 05/25/23, patient underwent right total knee arthroplasty. Tolerated the procedure well and was transferred to the regular floor. On the day of surgery, began mechanical DVT prophylaxis and started to work with therapy. On POD #1, made good progress with therapy and began chemical DVT prophylaxis. On POD #2, continued to make progress with therapy and home health therapy arrangements were made. Patient was ready for discharge home.] Labs and Pending Lab Test: Laboratory Tests 05/27/23 05:35: White Blood Count 12.0H, Red Blood Count 3.37L, Hemoglobin 9.8L, Hematocrit 31L, Mean Corpuscular Volume 93, Mean Corpuscular Hemoglobin 29, Mean Corpuscular Hemoglobin Concent 31L, Red Cell Distribution Width 13.0, Platelet Count 311, Mean Platelet Volume 10.0, Immature Granulocyte % (Auto) 1, Neutrophils (%) (Auto) 81H, Lymphocytes (%) (Auto) 6L, Monocytes (%) (Auto) 12, Eosinophils (%) (Auto) 1, Basophils (%) (Auto) 0, Neutrophils # (Auto) 9.6H, Lymphocytes # (Auto) 0.7L, Monocytes # (Auto) 1.4H, Eosinophils # (Auto) 0.1, Basophils # (Auto) 0.0, Immature Granulocyte # (Auto) 0.1, Neutrophils % (Manual) 80, Lymphocytes % (Manual) 11, Monocytes % (Manual) 8, Eosinophils % (Manual) 1, Blood Morphology Comment NORMAL, Sodium Level 138, Potassium Level 4.1, Chloride Level 109H, Carbon Dioxide Level 24, Anion Gap 5, Blood Urea Nitrogen 13, Creatinine 1.12, Estimat Glomerular Filtration Rate 49, BUN/Creatinine Ratio 12, Glucose Level 126H, Calcium Level 9.6, Corrected Calcium 10.1, Total Bilirubin 0.6, Aspartate Amino Transf (AST/SGOT) 23, Alanine Aminotransferase (ALT/SGPT) 18, Alkaline Phosphatase 130, Total Protein 6.1L, Albumin 3.4 Home Meds Active HYDROcodone/APAP 7.5/325 TAB (Acetaminophen/Hydrocodone Bitart) 1 Ea Tablet 1 Ea PO Q4H PRN 7 Days Aspirin EC (Aspirin) 81 Mg Tablet.dr 81 Mg PO BID WITH MEALS 14 Days Amlodipine Besylate 5 Mg Tablet 5 Mg PO DAILY 30 Days Cyclobenzaprine HCl 10 Mg Tablet 5 Mg PO Q8HR PRN 7 Days Reported Vitamin B12 (Cyanocobalamin (Vitamin B-12)) Unknown Strength Tab.chew Unknown Dose PO Tylenol Arthritis (Acetaminophen) 650 Mg Tablet.er 1,300 Mg PO Q8H Naproxen 500 Mg Tablet 500 Mg PO BID 3 Days Lisinopril 20 Mg Tablet 20 Mg PO DAILY Levothyroxine (Levothyroxine Sodium) 50 Mcg Capsule 50 Mcg PO DAILY [facility] Tablet (Cartilage/Collagen/Bor/Hyalur) 40 Mg-10 Mg-5 Mg-3.3 Mg Tablet 1 Each PO DAILY Voltaren Arthritis Pain (Diclofenac Sodium) 1 % Gel..gram. 20 Gm TP UD Plavix (Clopidogrel Bisulfate) 75 Mg Tablet 75 Mg PO DAILY Calcium Magnesium + D Tablet (Calcium Carb/Magnesium Oxid/D3) 400 Mg-167 Mg-133 Unit Tablet 1 Each PO DAILY Atorvastatin Calcium 40 Mg Tablet 40 Mg PO DAILY Aspirin 81 Mg Tab.chew 81 Mg PO DAILY Assessment/Pt Instructions WBAT on right leg; use walker for assist. Dry dressing daily to incision site; do not get incision wet. Home health therapy for motion/strengthening/gait training. F/U with Dr. Robert Peña ~2 weeks after surgery. Discharge Physical Examination Vital Signs Vital Signs Date Time Temp Pulse Resp B/P (MAP) Pulse Ox O2 Delivery O2 Flow Rate FiO2 05/27/23 07:48 37.1 76 18 184/66 (105) 95 Room Air 05/27/23 04:23 0.00 0.00 Extremity: Other (Right Knee: Incision C/D/I, +DF of ankle, no s/s of DVT) Allergies: Coded Allergies: No Known Drug Allergies (Unverified , 05/14/23) Discharge Summary Date of Admission Date of Discharge ROBERT PEÑA MD May 27, 2023 09:03
--- NOTE | 2023-05-27 10:59 | Progress Note ---
Subjective Date Seen by a Provider: May 27, 2023 Time Seen by a Provider: 11:00 Subjective/Events-last exam Patient doing really well Pain is controlled Discharge plan today Review of Systems Musculoskeletal: leg pain Objective Exam Last Set of Vital Signs Vital Signs Date Time Temp Pulse Resp B/P (MAP) Pulse Ox O2 Delivery O2 Flow Rate FiO2 05/27/23 08:00 95 Room Air 05/27/23 07:48 37.1 76 18 184/66 (105) 05/27/23 04:23 0.00 0.00 Capillary Refill : Less Than 3 Seconds I&O Intake and Output 05/27/23 00:00 Intake Total 1970 ml Output Total 425 ml Balance 1545 ml Intake Oral 1970 ml Output Urine Total 425 ml # Voids 2 # Urine Diapers 4 # Bowel Movements 1 General: Alert, Oriented X3, Cooperative, No Acute Distress Lungs: Clear to Auscultation, Normal Air Movement Heart: Regular Rate, Normal S1, Normal S2, No Murmurs Psych/Mental Status: Mental Status NL, Mood NL Results Lab Laboratory Tests 05/27/23 05:35: White Blood Count 12.0H, Red Blood Count 3.37L, Hemoglobin 9.8L, Hematocrit 31L, Mean Corpuscular Volume 93, Mean Corpuscular Hemoglobin 29, Mean Corpuscular Hemoglobin Concent 31L, Red Cell Distribution Width 13.0, Platelet Count 311, Mean Platelet Volume 10.0, Immature Granulocyte % (Auto) 1, Neutrophils (%) (Auto) 81H, Lymphocytes (%) (Auto) 6L, Monocytes (%) (Auto) 12, Eosinophils (%) (Auto) 1, Basophils (%) (Auto) 0, Neutrophils # (Auto) 9.6H, Lymphocytes # (Auto) 0.7L, Monocytes # (Auto) 1.4H, Eosinophils # (Auto) 0.1, Basophils # (Auto) 0.0, Immature Granulocyte # (Auto) 0.1, Neutrophils % (Manual) 80, Lymphocytes % (Manual) 11, Monocytes % (Manual) 8, Eosinophils % (Manual) 1, Blood Morphology Comment NORMAL, Sodium Level 138, Potassium Level 4.1, Chloride Level 109H, Carbon Dioxide Level 24, Anion Gap 5, Blood Urea Nitrogen 13, Creatinine 1.12, Estimat Glomerular Filtration Rate 49, BUN/Creatinine Ratio 12, Glucose Level 126H, Calcium Level 9.6, Corrected Calcium 10.1, Total Bilirubin 0.6, Aspartate Amino Transf (AST/SGOT) 23, Alanine Aminotransferase (ALT/SGPT) 18, Alkaline Phosphatase 130, Total Protein 6.1L, Albumin 3.4 Assessment/Plan Assessment/Plan Assess & Plan/Chief Complaint Assessment: Uncomplicated right total knee replacement due to osteoarthritis failed conservative management Hypertension TIA history Hypothyroidism Hyperlipidemia Plan: Home meds Supportive care PT and OT Fall risk Pain control ARASH MAYA DO May 27, 2023 10:59
[2023-05-27 11:35] VITALS: BP 138/60
--- NOTE | 2023-05-27 12:11 | Physical Therapy Daily Note ---
PT Daily Note-Current Subjective Patient lying supine in bed upon PT arrival, agreeable to treatment. Patient rates pain at 8/10 in right knee. Pain Section J - Health Conditions 1. Rarely or not at all 2. Occasionally 3. Frequently 4. Almost constantly 8. Unable to answer Pain Effect on Sleep: 1 Pain Interference with Therapy: 1 Pain Interference w/Day-to-Day: 1 Transfers SCALE: Activities may be completed with or without assistive devices. 4-Paoeeqyfvo-lcdakvn completes the activity by him/herself with no assistance from a helper. 5-Set-up or Clean-up Assistance-helper sets up or cleans up; patient completes activity. [place] assists only prior to or following the activity. 4-Supervision or Touching Assistance-helper provides verbal cues and/or touching/steadying and/or contact guard assistance as patient completes activity. Assistance may be provided throughout the activity or intermittently. 3-Partial/Moderate Assistance-helper does LESS THAN HALF the effort. [place] lifts, holds or supports trunk or limbs, but provides less than half the effort. 2-Substantial/Maximal Assistance-helper does MORE THAN HALF the effort. [place] lifts or holds trunk or limbs and provides more than half the effort. 8-Vewzeygyj-wfxxdb does ALL the effort. Patient does none of the effort to complete the activity. Or, the assistance of 2 or more helpers is required for the patient to complete the activity. If activity was not attempted, code reason: 7-Patient Refused. 9-Not Applicable-not attempted and the patient did not perform the activity before the current illness, exacerbation or injury. 10-Not Attempted due to Environmental Limitations-(lack of equipment, weather restraints, etc.). 88-Not Attempted due to Medical Conditions or Safety Concerns. Roll Left & Right (QC): 6 Sit to Lying (QC): 6 Lying to Sitting/Side of Bed(Q: 6 Sit to Stand (QC): 4 Chair/Sjd-pb-Iwrgx Xfer(QC): 4 Weight Bearing Right Lower Extremity: Right Weight Bearing/Tolerated Left Lower Extremity: Left Full Weight Bearing Gait Training Does the Patient Walk?: Yes Distance: 350' Walk 10 feet (QC): 4 Walk 50 ft with 2 Turns(QC): 4 Walk 150 ft (QC): 4 Gait Persons Needed: 1 Gait Assistive Device: FWW Assessment Current Status: Fair Progress Patient requires CGA during gait due to her reports of FWW pulling to the left. However, patient moderately impulsive and unable to observe obstacles on numerous occasions. Patient ambulates 350' with FWW, with CGA and frequent verbal cues for safety, progression, control of FWW, proper gait pattern and to slow down. Patient in bed post treatment with all needs met, nursing notified, call light in reach. PT Correction Goals Campus Supervisor Goals PT Correction Goals Time Frame: May 25, 2023 Roll Left & Right (QC): 6 Sit to Lying (QC): 6 Lying-Sitting on Side/Bed(QC): 6 Sit to Stand (QC): 6 Chair/Qdu-hl-Xjodw Xfer(QC): 6 Toilet Transfer (QC): 6 Walk 10 feet (QC): 6 Walk 50ft with 2 Turns (QC): 6 Walk 150 ft (QC): 6 PT Plan Treatment/Plan Treatment Plan: Continue Plan of Care Treatment Plan: Bed Mobility, Education, Functional Activity Krista, Functional Strength, Gait, Safety, Therapeutic Exercise, Transfers Treatment Duration: May 30, 2023 Frequency: 11 times per week Estimated Hrs Per Day: .5 hour per day Safety Risks/Education Patient Education: Gait Training, Transfer Techniques Teaching Recipient: Patient Teaching Methods: Demonstration, Discussion Response to Teaching: Reinforcement Needed Time Time In: 1036 Time Out: 1050 DATE: May 27, 2023 Total Billed Treatment Time: 14 Total Billed Treatment Visit, FABIAN HUANG PT May 27, 2023 12:11
[2023-05-27 12:40] VITALS: BP 138/60
== END 2023-05-27 12:40 | disposition home or self-care (01) ==
LOC: SDC 07:35 → 4TH 13:15 → SDC 05-27 12:40
PROVIDERS: ATTEND Orthopaedic Surgery
DX: M17.11 Unilateral primary osteoarthritis, right knee (principal); I10 Essential (primary) hypertension; E03.9 Hypothyroidism, unspecified; E78.00 Pure hypercholesterolemia, unspecified; Z86.73 Personal history of transient ischemic attack (TIA), and cerebral infarction without residual deficits; Z79.890 Hormone replacement therapy; E66.9 Obesity, unspecified; Z79.899 Other long term (current) drug therapy; Z68.31 Body mass index [BMI] 31.0-31.9, adult
CPT/HCPCS: 27447; 73560; 94664; 97110; 97116; 97162; C1713 ×2; C1776 ×3; 36415; 80053; 85007; 85027

== ENCOUNTER → 2023-06-09 | Outpatient (CLI) | payer MEDICARE ==
[~2023-06-09] MED LIST changes: +AMLO-250 PO; +ASPI-1238 PO; +CYCL10TA25 PO; +HYDR-34 PO
== END ==
LOC: ORTHO 10:13
PROVIDERS: ATTEND Orthopaedic Surgery
DX: Z47.89 Encounter for other orthopedic aftercare (principal); M17.11 Unilateral primary osteoarthritis, right knee

== ENCOUNTER → 2023-07-09 | Outpatient (CLI) | payer MEDICARE ==
--- NOTE | 2023-07-09 11:05 | Diagnostic Imaging Report ---
EXAMINATION: Right knee two view. HISTORY: Postop. COMPARISON: 05/25/2023. FINDINGS: There has been a right knee arthroplasty. Alignment is near-anatomic. There is a small effusion. No fracture. IMPRESSION: 1. Unchanged anatomic alignment of a right knee arthroplasty. Dictated by: Dictated on workstation # [id number]
== END ==
LOC: ORTHO 09:57
PROVIDERS: ATTEND Orthopaedic Surgery
DX: M25.561 Pain in right knee (principal); Z96.651 Presence of right artificial knee joint
CPT/HCPCS: 73560

== ENCOUNTER → 2023-08-20 | Outpatient (CLI) | payer MEDICARE | LOC: ORTHO 10:08 | PROVIDERS: ATTEND Orthopaedic Surgery | DX: Z47.89 Encounter for other orthopedic aftercare (principal); M17.11 Unilateral primary osteoarthritis, right knee ==